=== PATIENT | male | born 1945 | race American Indian/Alaskan Native ===

== ENCOUNTER 2016-07-15 05:14 | Inpatient (IN) | payer MEDICARE ==
[2016-07-15 06:51] LABS: Basophils % (Auto) 0.5 % (0.0-1.8); Eosinophils % (Auto) 2.5 % (0.0-4.3); Hemoglobin 10.1 gm/dl (11.8-15.2); Mean Corpuscular HGB Conc 33 % (32-34); Mean Corpuscular Volume 77 fl (84-94); Platelet Count 553 K/mm3 (140-440); Red Blood Count 4.02 M/mm3 (3.65-5.03); Red Cell Distribution Width 19.8 % (13.2-15.2); White Blood Count 10.9 K/mm3 (4.5-11.0)
[2016-07-15 06:53] LABS: Albumin 3.3 g/dL (3.9-5); Albumin/Globulin Ratio 0.6 %; Alkaline Phosphatase 75 units/L (35-129); Anion Gap 22 mmol/L; BUN/Creatinine Ratio 28.33; Bilirubin,Total 0.4 mg/dL (0.1-1.2); Blood Urea Nitrogen 17 mg/dL (9-20); Calcium 9.5 mg/dL (8.4-10.2); Carbon Dioxide 22 mmol/L (22-30); Chloride 99.8 mmol/L (98-107); Glucose 100 mg/dL (75-100); Magnesium 2.2 mg/dL (1.7-2.3); Potassium 4.3 mmol/L (3.6-5.0); Sodium 139 mmol/L (137-145); Total Protein 9.2 g/dL (6.3-8.2)
[2016-07-15 06:54] LABS: Alanine Aminotransferase < 5 units/L (7-56)
[2016-07-15 06:55] LABS: Mean Corpuscular Hemoglobin 25 pg (28-32)
--- NOTE | 2016-07-15 07:12 | Emergency Department Report ---
ED Male HPI - General Chief complaint: Urogenital-Male Stated complaint: UNABLE TO URINATE Time Seen by Provider: 07/15/16 06:45 Source: patient, EMS Mode of arrival: Stretcher Limitations: Physical Limitation - History of Present Illness Initial comments: 70-year-old male presents to the emergency department via EMS from a local shelter for evaluation of inability to urinate and reported altered mental status. Per report, the patient has been unable to urinate for the past 8 hours or to arrival. Patient has a history of encephalopathy and is currently denying complaints. -: Gradual, During the night Consistency: constant Improves with: none Worsens with: none denies other symptoms - Related Data Allergies Allergy/AdvReac Type Severity Reaction Status Date / Time No Known Allergies Allergy Unverified 07/15/16 05:46 ED Review of Systems ROS: Stated complaint: UNABLE TO URINATE Other details as noted in HPI Comment: All other systems reviewed and negative Genitourinary: as per HPI (urinary retention) ED Past Medical Hx - Past Medical History Previous Medical History?: Yes Additional medical history: UTI, hyperlipidemia, and encephalopathy, pressure Ulcers - Surgical History Past Surgical History?: No - Family History Family history: no significant - Social History Smoking Status: Unknown if ever smoked ED Physical Exam - General Limitations: Physical Limitation General appearance: alert, in no apparent distress - Head Head exam: Present: atraumatic, normocephalic - Eye Eye exam: Present: normal appearance, PERRL, EOMI - ENT ENT exam: Present: normal exam, normal orophraynx, mucous membranes moist - Neck Neck exam: Present: normal inspection, full ROM. Absent: tenderness - Respiratory Respiratory exam: Present: normal lung sounds bilaterally. Absent: respiratory distress - Cardiovascular Cardiovascular Exam: Present: normal rhythm, tachycardia, normal heart sounds - GI/Abdominal GI/Abdominal exam: Present: soft, normal bowel sounds. Absent: distended, tenderness - exam: Present: normal inspection External exam: Present: normal external exam - Extremities Exam Extremities exam: Present: normal inspection, full ROM. Absent: tenderness - Back Exam Back exam: Present: normal inspection, full ROM. Absent: tenderness - Neurological Exam Neurological exam: Present: alert. Absent: oriented X3 (oriented to person and place only) - Skin Skin exam: Present: warm, dry, intact ED Course Vital Signs 07/15/16 07/15/1607/15/17 05:25 05:30 05:33 Temperature 97.9 F Pulse Rate 121 H 120 H 117 H Respiratory 12 22 20 Rate Blood Pressure 102/63 102/63 Blood Pressure [Left] O2 Sat by Pulse 99 Oximetry 07/15/16 07/15/16 07/15/16 06:00 06:27 08:26 Temperature 97.9 F 98.8 F Pulse Rate 123 H 110 H Respiratory 21 20 16 Rate Blood Pressure 115/77 Blood Pressure 110/85 [Left] O2 Sat by Pulse 100 100 96 Oximetry ED Medical Decision Making - Lab Data Result diagrams: 07/15/16 05:58 07/15/16 05:58 - EKG Data -: EKG Interpreted by Me EKG shows normal: sinus rhythm, axis, intervals, QRS complexes, ST-T waves Rate: tachycardia - EKG Data When compared to previous EKG there are: previous EKG unavailable Interpretation: other (sinus tachycardia with frequent premature atrial complexes) - Medical Decision Making Lab results reviewed and discussed with the patient and family. Patient remained somewhat tachycardic. Giving IV fluids. Also giving IV Rocephin. Urine culture has been ordered. Monteiro catheter was previously placed by nursing after arrival emergency department. Patient will be admitted by the hospitalist. - Differential Diagnosis urinary retention, UTI, encephalopathy Critical care attestation.: If time is entered above; I have spent that time in minutes in the direct care of this critically ill patient, excluding procedure time. ED Disposition Clinical Impression: UTI (urinary tract infection) Qualifiers: Urinary tract infection type: acute cystitis Hematuria presence: without hematuria Qualified Code(s): N30.00 - Acute cystitis without hematuria Altered mental status Qualifiers: Altered mental status type: unspecified Qualified Code(s): R41.82 - Altered mental status, unspecified Disposition: OP ADMITTED IP TO THIS HOSP Is pt being admited?: Yes Condition: Stable Time of Disposition: 08:37
[2016-07-15 07:24] LABS: Urine Drugs of Abuse Note Disclamer
[2016-07-15 07:33] LABS: Bacteria,Urine 3+ /HPF (Negative); Bilirubin,Urine NEG (Negative); Blood,Urine MOD (Negative); Ketones,Urine NEG (Negative); Leukocyte Esterase,Urine LG (Negative); Mucus,Urine FEW /HPF; Nitrite,Urine NEG (Negative); Urobilinogen,Urine < 2.0 mg/dL (<2.0)
[2016-07-15 07:34] LABS: WBC,Urine > 182.0 /HPF (0.0-6.0)
[2016-07-15] MEDS ORDERED: NACL 0.9% 1000 ML 1,000 ML IV ONE (08:35)
[2016-07-15] MEDS ORDERED: ROCEPHIN/NS 1 GM/50 ML 1 GM/50 ML BAG IV ONE (08:36)
--- NOTE | 2016-07-15 09:05 | Admit Criteria Form ---
Admission Criteria Documentation: URINARY COMPLICATIONS Clinical Indications for Inpatient Care (Place 'X' for any and all applicable criteria): Ongoing inpatient care may be indicated for urinary complications with ANY ONE of the following: [x ]I. Urinary tract infection requiring inpatient care as indicated by ANY ONE of the following(8)(19)(20): [ ]a) Severe symptoms (eg, high fever, severe pain) [ ]b) Vomiting or dehydration requiring ongoing inpatient care [x ]c) IV antibiotic needs that cannot be managed at lower level of care [ ]d) Hemodynamic instability [ ]e) Obstruction of collecting system by stone or tumor [ ]II. Urinary retention requiring drainage or surgery (3)(4)(5)(17)(18) [ ]III. Renal failure (Use Renal Failure Criteria for further information.) [ ]IV. Oliguria(30) [ ]V. Post obstructive diuresis requiring close monitoring of urine output and intravenous compensation for excessive fluid losses(33) Extended stay beyond goal length of stay for primary condition may be needed until ALL of the following are present(3)(4)(5)(8): [ ]a) Renal function (creatinine) at baseline, or daily decreases in creatinine consistent with renal function return [ ]b) Voiding adequately or with urinary catheter or percutaneous suprapubic tube and management regimen in place that is performable at lower level of care. [ ]c) Urine output adequate [ ]d) Fever absent or resolving [ ]e) Infection absent or treatable at next level of care The original [employer] content created by [employer] has been revised. The portions of the content which have been revised are identified through the use of italic text or in bold, and [facility] has neither reviewed nor approved the modified material. All other unmodified content is copyright [employer] Please see references footnoted in the original [employer] edition 2016 Admission Criteria Met: Yes
[2016-07-15] MEDS ORDERED: ZOFRAN IV PRN (09:30)
[2016-07-15] MEDS ORDERED: MILK OF MAGNESIA PO PRN (09:30)
[2016-07-15] MEDS ORDERED: TYLENOL PO PRN (09:30)
[2016-07-15] MEDS ORDERED: DULCOLAX PR PRN (10:00)
[2016-07-15] MEDS ORDERED: PROVENTIL IH PRN (11:00)
[2016-07-15] MEDS: HEPARIN SUB-Q SCH ×2 (11:11→22:34)
[2016-07-15] MEDS: ROCEPHIN/NS 1 GM/50 ML 1 GM/50 ML BAG IV SCH (11:11)
[2016-07-15] MEDS ORDERED: TYLENOL PR ONE (13:37)
[2016-07-15] MEDS ORDERED: TYLENOL PR PRN (13:44)
--- NOTE | 2016-07-15 14:45 | History and Physical Report ---
History of Present Illness Date of examination: 07/15/16 Date of admission: 07/15/16 08:46 Chief complaint: Inability to urinate, dysphagia, failure to thrive History of present illness: Patient is 70 [facility] with history of hypertension, diabetes mellitus, dementia and bedbound. We'll presents to the ER with report of inability to urinate and altered mental status. Less than staff reports the patient has not urinated in the past 8 hours. Appears to be a baseline mentation otherwise. On arrival to the hospital a Monteiro Was inserted with thick urine out both with multiple sentiments of about 600 mL noted. The patient is unable to give any information. The white count was noted by urinalysis was indicative of urinary tract infection. Patient was started on empiric antibiotics are recommended for admission. detention facility also reports the patient has not been tolerating by mouth intake. This could have led to her dehydration but is being noted. Past History Past Medical History: diabetes, hypertension, hyperlipidemia Past Surgical History: Other (unable to obtain information) Social history: full code Family history: other (unable to obtain information) Medications and Allergies Allergies Allergy/AdvReac Type Severity Reaction Status Date / Time No Known Allergies Allergy Verified 07/15/16 09:14 Home Medications Medication Instructions Recorded Confirmed Last Taken Type AtorvaSTATin [Lipitor] 40 mg PO QHS 07/15/16 07/15/16 Unknown History Bisacodyl [Dulcolax suppos] 10 mg MN QDAY PRN 07/15/16 07/15/16 Unknown History Docusate Sodium [Colace] 100 mg PO BID PRN 07/15/16 07/15/16 Unknown History Insulin Aspart [NovoLOG Flexpen] 0 units SQ ACHS 07/15/16 07/15/16 Unknown History Lisinopril [Zestril TAB] 10 mg PO QDAY 07/15/16 07/15/16 Unknown History Magnesium 400 mg PO BID 07/15/16 07/15/16 Unknown History Pentoxifylline [TRENtal] 400 mg PO TID 07/15/16 07/15/16 Unknown History Thiamine [Vitamin B-1] 100 mg PO QDAY 07/15/16 07/15/16 Unknown History amLODIPine [Norvasc] 10 mg PO DAILY 07/15/16 07/15/16 Unknown History Active Meds: Active Medications Acetaminophen (Tylenol) 650 mg PO Q4H PRN PRN Reason: Pain MILD(1-3)/Fever >100.5/VALDEZ Acetaminophen (Tylenol) 650 mg MN Q6H PRN PRN Reason: Pain, Mild (1-3) Last Admin: 07/15/16 13:45 Dose: 650 mg Albuterol (Proventil) 2.5 mg IH Q3HRT PRN PRN Reason: Shortness Of Breath Bisacodyl (Dulcolax) 10 mg MN QDAY PRN PRN Reason: Constipation unrelieved by MOM Heparin Sodium (Porcine) (Heparin) 5,000 unit SUB-Q Q12HR GAUDENCIO Last Admin: 07/15/16 11:11 Dose: Not Given Ceftriaxone Sodium (Rocephin/Ns 1 Gm/50 Ml) 1 gm in 50 mls @ 100 mls/hr IV Q24HR GAUDENCIO PRN Reason: Protocol Last Admin: 07/15/16 11:11 Dose: 100 mls/hr Potassium Chloride/Dextrose/Sod Cl (D5w/0.45% Nacl/Kcl 20 Meq) 20 meq in 1,000 mls @ 125 mls/hr IV DIRECT GAUDENCIO Magnesium Hydroxide (Milk Of Magnesia) 30 ml PO Q4H PRN PRN Reason: Constipation Ondansetron HCl (Zofran) 4 mg IV Q8H PRN PRN Reason: Nausea And Vomiting Review of Systems ROS unobtainable: due to mental status (altered mental status) Exam - Physical Exam Narrative exam: VITAL SIGNS: Reviewed. GENERAL: The patient appeared thin, disheveled. Vital signs as documented. HEAD: No signs of head trauma. EYES: Pupils are equal. Extraocular motions intact. EARS: Hearing grossly intact. MOUTH: Oropharynx is normal. NECK: No adenopathy, no JVD. CHEST: Chest with clear breath sounds bilaterally. No wheezes, rales, or rhonchi. CARDIAC: Regular rate and rhythm. S1 and S2, without murmurs, gallops, or rubs. VASCULAR: No Edema. Peripheral pulses normal and equal in all extremities. ABDOMEN: Soft, without detectable tenderness. No sign of distention. No rebound or guarding, and no masses palpated. Bowel Sounds normal. MUSCULOSKELETAL: Good range of motion of all major joints. Extremities without clubbing, cyanosis or edema. NEUROLOGIC EXAM: Awake, determine orientation due to dementia. No focal sensory or strength deficits. Speech comprehensible at times. Follows commands. PSYCHIATRIC: Mood normal. SKIN: Multiple sacral and pressure ulcers unstageable at the sacral area also on the heels. - Constitutional Vitals: Temp Pulse Resp BP Pulse Ox 100.0 F H 119 H 16 126/74 99 07/15/16 13:30 07/15/16 13:30 07/15/16 13:30 07/15/16 13:30 07/15/16 13:30 Results - Labs CBC & Chem 7: 07/15/16 05:58 07/15/16 05:58 Labs: Laboratory Last Values WBC 10.9 K/mm3 (4.5-11.0) 07/15/16 05:58 RBC 4.02 M/mm3 (3.65-5.03) 07/15/16 05:58 Hgb 10.1 gm/dl (11.8-15.2) L 07/15/16 05:58 Hct 31.0 % (35.5-45.6) L 07/15/16 05:58 MCV 77 fl (84-94) L 07/15/16 05:58 MCH 25 pg (28-32) L 07/15/16 05:58 MCHC 33 % (32-34) 07/15/16 05:58 RDW 19.8 % (13.2-15.2) H 07/15/16 05:58 Plt Count 553 K/mm3 (140-440) H 07/15/16 05:58 Lymph % (Auto) 26.5 % (13.4-35.0) 07/15/16 05:58 [place] % (Auto) 4.8 % (0.0-7.3) 07/15/16 05:58 Eos % (Auto) 2.5 % (0.0-4.3) 07/15/16 05:58 Baso % (Auto) 0.5 % (0.0-1.8) 07/15/16 05:58 Lymph # 2.9 K/mm3 (1.2-5.4) 07/15/16 05:58 [place] # 0.5 K/mm3 (0.0-0.8) 07/15/16 05:58 Eos # 0.3 K/mm3 (0.0-0.4) 07/15/16 05:58 Baso # 0.1 K/mm3 (0.0-0.1) 07/15/16 05:58 Seg Neutrophils % 65.7 % (40.0-70.0) 07/15/16 05:58 Seg Neutrophils # 7.2 K/mm3 (1.8-7.7) 07/15/16 05:58 Sodium 139 mmol/L (137-145) 07/15/16 05:58 Potassium 4.3 mmol/L (3.6-5.0) 07/15/16 05:58 Chloride 99.8 mmol/L (98-107) 07/15/16 05:58 Carbon Dioxide 22 mmol/L (22-30) 07/15/16 05:58 Anion Gap 22 mmol/L 07/15/16 05:58 BUN 17 mg/dL (9-20) 07/15/16 05:58 Creatinine 0.6 mg/dL (0.8-1.5) L 07/15/16 05:58 Estimated GFR > 60 ml/min 07/15/16 05:58 BUN/Creatinine Ratio 28.33 % 07/15/16 05:58 Glucose 100 mg/dL (75-100) 07/15/16 05:58 Lactic Acid 1.9 mmol/L (0.7-2.0) 07/15/16 08:39 Calcium 9.5 mg/dL (8.4-10.2) 07/15/16 05:58 Magnesium 2.2 mg/dL (1.7-2.3) 07/15/16 05:58 Total Bilirubin 0.4 mg/dL (0.1-1.2) 07/15/16 05:58 AST 21 units/L (5-40) 07/15/16 05:58 ALT < 5 units/L (7-56) L 07/15/16 05:58 Alkaline Phosphatase 75 units/L (35-129) 07/15/16 05:58 Total Protein 9.2 g/dL (6.3-8.2) H 07/15/16 05:58 Albumin 3.3 g/dL (3.9-5) L 07/15/16 05:58 Albumin/Globulin Ratio 0.6 % 07/15/16 05:58 TSH 1.870 mlU/mL (0.270-4.200) 07/15/16 05:58 Urine Color Erin (Yellow) 07/15/16 07:11 Urine Turbidity Turbid (Clear) 07/15/16 07:11 Urine pH 5.0 (5.0-7.0) 07/15/16 07:11 Ur Specific [place] 1.013 (1.003-1.030) 07/15/16 07:11 Urine Protein 30 mg/dl mg/dL (Negative) 07/15/16 07:11 Urine Glucose (UA) Neg mg/dL (Negative) 07/15/16 07:11 Urine Ketones Neg mg/dL (Negative) 07/15/16 07:11 Urine Blood Mod (Negative) 07/15/16 07:11 Urine Nitrite Neg (Negative) 07/15/16 07:11 Urine Bilirubin Neg (Negative) 07/15/16 07:11 Urine Urobilinogen < 2.0 mg/dL (<2.0) 07/15/16 07:11 Ur Leukocyte Esterase Lg (Negative) 07/15/16 07:11 Urine WBC (Auto) > 182.0 /HPF (0.0-6.0) H 07/15/16 07:11 Urine RBC (Auto) 44.0 /HPF (0.0-6.0) 07/15/16 07:11 Urine Bacteria (Auto) 3+ /HPF (Negative) 07/15/16 07:11 Urine WBC Clumps 1+ /HPF 07/15/16 07:11 Hyaline Casts 13 /LPF 07/15/16 07:11 Urine Mucus Few /HPF 07/15/16 07:11 Salicylates < 0.3 mg/dL (2.8-20.0) L 07/15/16 05:58 Urine Opiates Screen Presumptive negative 07/15/16 07:11 Urine Methadone Screen Presumptive negative 07/15/16 07:11 Acetaminophen < 15.0 ug/mL (10.0-30.0) 07/15/16 05:58 Ur Barbiturates Screen Presumptive negative 07/15/16 07:11 Ur Phencyclidine Scrn Presumptive negative 07/15/16 07:11 Ur Amphetamines Screen Presumptive negative 07/15/16 07:11 U Benzodiazepines Scrn Presumptive negative 07/15/16 07:11 Urine Cocaine Screen Presumptive negative 07/15/16 07:11 U Marijuana (THC) Screen Presumptive negative 07/15/16 07:11 Drugs of Abuse Note Disclamer 07/15/16 07:11 Plasma/Serum Alcohol < 0.01 gm% (0-0.07) 07/15/16 05:58 Assessment and Plan Assessment and plan: Patient is 70 [facility] with history of hypertension, diabetes mellitus, dementia and bedbound. We'll presents to the ER with report of inability to urinate and altered mental status. Less than staff reports the patient has not urinated in the past 8 hours. Appears to be a baseline mentation otherwise. On arrival to the hospital a Monteiro Was inserted with thick urine out both with multiple sentiments of about 600 mL noted. The patient is unable to give any information. The white count was noted by urinalysis was indicative of urinary tract infection. Patient was started on empiric antibiotics are recommended for admission. detention facility also reports the patient has not been tolerating by mouth intake. This could have led to her dehydration but is being noted. * Acute cystitis * Urinary retention likely secondary to above * Dementia * Toxic metabolic encephalopathy could be secondary to the cystitis although close to baseline * Ambulatory/bedbound * Hypertension * Hyperlipidemia * Pressure ulcers unstageable Plan * supportive care, fall precautions, * Blood cultures, lactate * start on Emperic antibiotics * resume home medication * Fluid resusication * Will trial removal of Monteiro prior to discharge * wound care consult * dvt/gi prophylaxis * call placed to family Advance Directives: Yes Plan of care discussed with patient/family: Yes
[2016-07-15] MEDS ORDERED: COLACE PO PRN (15:03)
[2016-07-15] MEDS: TRENTAL PO SCH (22:33)
[2016-07-16] MEDS: D5W/0.45% NACL/KCL 20 MEQ 20 MEQ/1,000 ML BAG IV SCH (07:43)
[2016-07-16 08:01] LABS: Anion Gap 19 mmol/L; Blood Urea Nitrogen 12 mg/dL (9-20); Calcium 8.9 mg/dL (8.4-10.2); Carbon Dioxide 20 mmol/L (22-30); Chloride 102.5 mmol/L (98-107); Glucose 68 mg/dL (75-100); Potassium 4.3 mmol/L (3.6-5.0); Sodium 137 mmol/L (137-145)
[2016-07-16 08:09] LABS: Basophils % (Auto) 0.7 % (0.0-1.8); Eosinophils % (Auto) 0.6 % (0.0-4.3); Hematocrit 26.8 % (35.5-45.6); Hemoglobin 8.7 gm/dl (11.8-15.2); Mean Corpuscular HGB Conc 33 % (32-34); Mean Corpuscular Volume 77 fl (84-94); Platelet Count 414 K/mm3 (140-440); Red Blood Count 3.46 M/mm3 (3.65-5.03); Red Cell Distribution Width 19.8 % (13.2-15.2)
[2016-07-16 08:15] LABS: Mean Corpuscular Hemoglobin 25 pg (28-32)
[2016-07-16] MEDS: ROCEPHIN/NS 1 GM/50 ML 1 GM/50 ML BAG IV SCH (11:02)
[2016-07-16] MEDS: ZESTRIL PO SCH (11:03)
[2016-07-16] MEDS: VITAMIN B-1 PO SCH (11:03)
[2016-07-16] MEDS: TRENTAL PO SCH ×3 (11:08→21:00)
[2016-07-16] MEDS: HEPARIN SUB-Q SCH ×2 (11:14→22:11)
--- NOTE | 2016-07-16 16:09 | Progress Note ---
Assessment and Plan Assessment and plan: Patient is 70 year old male from [facility] with history of hypertension, diabetes mellitus, dementia and bedbound. We'll presents to the ER with report of inability to urinate and altered mental status. Less than staff reports the patient has not urinated in the past 8 hours. Appears to be a baseline mentation otherwise. On arrival to the hospital a Monteiro Was inserted with thick urine out both with multiple sentiments of about 600 mL noted. The patient is unable to give any information. The white count was noted by urinalysis was indicative of urinary tract infection. Patient was started on empiric antibiotics are recommended for admission. [facility] facility also reports the patient has not been tolerating by mouth intake. This could have led to her dehydration but is being noted. * Acute cystitis * Urinary retention likely secondary to above * Dementia * Toxic metabolic encephalopathy could be secondary to the cystitis although close to baseline * Ambulatory/bedbound * Hypertension * Hypoglycemia * Anemia of chronic disease * Hyperlipidemia * Pressure ulcers unstageable Plan * continue supportive care, fall precautions, * Blood cultures no growth, awaiting urine culture * continue Emperic antibiotics * resume home medication * We'll check iron levels. No evidence of GI bleed at this time. * Change fluids to D5W * Fluid resusication * Will trial removal of Monteiro prior to discharge * wound care consult * dvt/gi prophylaxis * Anticipate discharge in a.m. * call placed to family History Interval history: Patient seen and examined this morning states that he is improving. Denies any pain. Although still intermittently confused, NO other adverse event reported by nursing staff. Hospitalist Physical - Physical exam Narrative exam: VITAL SIGNS: Reviewed. GENERAL: The patient appeared thin, in no acute distress. Vital signs as documented. HEAD: No signs of head trauma. EYES: Pupils are equal. Extraocular motions intact. EARS: Hearing grossly intact. MOUTH: Oropharynx is normal. NECK: No adenopathy, no JVD. CHEST: Chest with clear breath sounds bilaterally. No wheezes, rales, or rhonchi. CARDIAC: Regular rate and rhythm. S1 and S2, without murmurs, gallops, or rubs. VASCULAR: No Edema. Peripheral pulses normal and equal in all extremities. ABDOMEN: Soft, without detectable tenderness. No sign of distention. No rebound or guarding, and no masses palpated. Bowel Sounds normal. MUSCULOSKELETAL: Good range of motion of all major joints. Extremities without clubbing, cyanosis or edema. NEUROLOGIC EXAM: Awake, determine orientation due to dementia. No focal sensory or strength deficits. Speech comprehensible at times. Follows commands. PSYCHIATRIC: Mood normal. SKIN: Multiple sacral and pressure ulcers unstageable at the sacral area also on the heels. - Constitutional Vitals: Temp Pulse Resp BP Pulse Ox 98.2 F 104 H 20 130/74 99 07/16/16 08:00 07/16/16 08:00 07/16/16 08:00 07/16/16 11:03 07/16/16 08:00 Results - Labs CBC & Chem 7: 07/16/16 06:45 07/16/16 06:45 Labs: Laboratory Last Values WBC 9.0 K/mm3 (4.5-11.0) 07/16/16 06:45 RBC 3.46 M/mm3 (3.65-5.03) L 07/16/16 06:45 Hgb 8.7 gm/dl (11.8-15.2) L 07/16/16 06:45 Hct 26.8 % (35.5-45.6) L 07/16/16 06:45 MCV 77 fl (84-94) L 07/16/16 06:45 MCH 25 pg (28-32) L 07/16/16 06:45 MCHC 33 % (32-34) 07/16/16 06:45 RDW 19.8 % (13.2-15.2) H 07/16/16 06:45 Plt Count 414 K/mm3 (140-440) 07/16/16 06:45 Lymph % (Auto) 26.7 % (13.4-35.0) 07/16/16 06:45 [place] % (Auto) 5.6 % (0.0-7.3) 07/16/16 06:45 Eos % (Auto) 0.6 % (0.0-4.3) 07/16/16 06:45 Baso % (Auto) 0.7 % (0.0-1.8) 07/16/16 06:45 Lymph # 2.4 K/mm3 (1.2-5.4) 07/16/16 06:45 [place] # 0.5 K/mm3 (0.0-0.8) 07/16/16 06:45 Eos # 0.1 K/mm3 (0.0-0.4) 07/16/16 06:45 Baso # 0.1 K/mm3 (0.0-0.1) 07/16/16 06:45 Seg Neutrophils % 66.4 % (40.0-70.0) 07/16/16 06:45 Seg Neutrophils # 6.0 K/mm3 (1.8-7.7) 07/16/16 06:45 Sodium 137 mmol/L (137-145) 07/16/16 06:45 Potassium 4.3 mmol/L (3.6-5.0) 07/16/16 06:45 Chloride 102.5 mmol/L (98-107) 07/16/16 06:45 Carbon Dioxide 20 mmol/L (22-30) L 07/16/16 06:45 Anion Gap 19 mmol/L 07/16/16 06:45 BUN 12 mg/dL (9-20) 07/16/16 06:45 Creatinine 0.4 mg/dL (0.8-1.5) L 07/16/16 06:45 Estimated GFR > 60 ml/min 07/16/16 06:45 BUN/Creatinine Ratio 30.00 % 07/16/16 06:45 Glucose 68 mg/dL (75-100) L 07/16/16 06:45 POC Glucose 99 (70-105) 07/16/16 11:55 Lactic Acid 1.7 mmol/L (0.7-2.0) 07/15/16 19:46 Calcium 8.9 mg/dL (8.4-10.2) 07/16/16 06:45 Magnesium 2.2 mg/dL (1.7-2.3) 07/15/16 05:58 Total Bilirubin 0.4 mg/dL (0.1-1.2) 07/15/16 05:58 AST 21 units/L (5-40) 07/15/16 05:58 ALT < 5 units/L (7-56) L 07/15/16 05:58 Alkaline Phosphatase 75 units/L (35-129) 07/15/16 05:58 Total Protein 9.2 g/dL (6.3-8.2) H 07/15/16 05:58 Albumin 3.3 g/dL (3.9-5) L 07/15/16 05:58 Albumin/Globulin Ratio 0.6 % 07/15/16 05:58 TSH 1.870 mlU/mL (0.270-4.200) 07/15/16 05:58 Urine Color [place] (Yellow) 07/15/16 07:11 Urine Turbidity Turbid (Clear) 07/15/16 07:11 Urine pH 5.0 (5.0-7.0) 07/15/16 07:11 Ur Specific [place] 1.013 (1.003-1.030) 07/15/16 07:11 Urine Protein 30 mg/dl mg/dL (Negative) 07/15/16 07:11 Urine Glucose (UA) Neg mg/dL (Negative) 07/15/16 07:11 Urine Ketones Neg mg/dL (Negative) 07/15/16 07:11 Urine Blood Mod (Negative) 07/15/16 07:11 Urine Nitrite Neg (Negative) 07/15/16 07:11 Urine Bilirubin Neg (Negative) 07/15/16 07:11 Urine Urobilinogen < 2.0 mg/dL (<2.0) 07/15/16 07:11 Ur Leukocyte Esterase Lg (Negative) 07/15/16 07:11 Urine WBC (Auto) > 182.0 /HPF (0.0-6.0) H 07/15/16 07:11 Urine RBC (Auto) 44.0 /HPF (0.0-6.0) 07/15/16 07:11 Urine Bacteria (Auto) 3+ /HPF (Negative) 07/15/16 07:11 Urine WBC Clumps 1+ /HPF 07/15/16 07:11 Hyaline Casts 13 /LPF 07/15/16 07:11 Urine Mucus Few /HPF 07/15/16 07:11 Salicylates < 0.3 mg/dL (2.8-20.0) L 07/15/16 05:58 Urine Opiates Screen Presumptive negative 07/15/16 07:11 Urine Methadone Screen Presumptive negative 07/15/16 07:11 Acetaminophen < 15.0 ug/mL (10.0-30.0) 07/15/16 05:58 Ur Barbiturates Screen Presumptive negative 07/15/16 07:11 Ur Phencyclidine Scrn Presumptive negative 07/15/16 07:11 Ur Amphetamines Screen Presumptive negative 07/15/16 07:11 U Benzodiazepines Scrn Presumptive negative 07/15/16 07:11 Urine Cocaine Screen Presumptive negative 07/15/16 07:11 U Marijuana (THC) Screen Presumptive negative 07/15/16 07:11 Drugs of Abuse Note Disclamer 07/15/16 07:11 Plasma/Serum Alcohol < 0.01 gm% (0-0.07) 07/15/16 05:58
[2016-07-17] MEDS: D5W/0.45% NACL/KCL 20 MEQ 20 MEQ/1,000 ML BAG IV SCH (06:00)
--- NOTE | 2016-07-17 07:30 | Discharge Summary ---
Providers - Providers Date of Admission: 07/15/16 08:46 Date of discharge: 07/17/16 Attending physician: CARLO CUBA MD 07/15/16 08:48 Speech Therapy Evaluation and Treat [CONS] Routine Reason For Exam: eval for aspiration/ dysphagia 07/15/16 08:49 Consult to Wound/ET Nurse [CONS] Routine Reason For Exam: wound eval Primary care physician: MARK[facility]STER Hospitalization Reason for admission: AMS Condition: Stable Hospital course: Patient is 70 year old male from [facility] with history of hypertension, diabetes mellitus, dementia and bedbound. We'll presents to the ER with report of inability to urinate and altered mental status. Less than staff reports the patient has not urinated in the past 8 hours. Appears to be a baseline mentation otherwise. On arrival to the hospital a Monteiro Was inserted with thick urine out both with multiple sentiments of about 600 mL noted. The patient is unable to give any information. The white count was noted by urinalysis was indicative of urinary tract infection. Patient was started on empiric antibiotics are recommended for admission. senior care facility also reports the patient has not been tolerating by mouth intake. This could have led to her dehydration but is being noted. Patient on admission was started on IV antibiotics. Cultures were sent out with no growth at this time. Unfortunately urine culture was not sent despite multiple discussions with staff to have this sent off. Patient did not have any fever his mentation did improve back to his baseline. He is nonambulatory. Monteiro catheter was discontinued with good improvement. His pressure also has both of the heel and the sacral area unstageable but continuous care was provided to it. With every 2 hours turns. He is clinically stable at this point for discharge Discharge diagnosis * Acute cystitis * Urinary retention likely secondary to above * Dementia * Toxic metabolic encephalopathy could be secondary to the cystitis although close to baseline * Ambulatory/bedbound * Hypertension * Hypoglycemia * Anemia of chronic disease * Hyperlipidemia * Pressure ulcers unstageable Disposition: DC/TX SNF [facility] CERT Time spent for discharge: 35 Core Measure Documentation - Palliative Care Palliative Care/ Comfort Measures: Not Applicable - Core Measures Any of the following diagnoses?: none - VTE Discharge Requirements Deep Vein Thrombosis/Pulmonary Embolism Present on Admission: No Exam - Physical Exam Narrative exam: VITAL SIGNS: Reviewed. GENERAL: The patient appeared thin, in no acute distress. Vital signs as documented. HEAD: No signs of head trauma. EYES: Pupils are equal. Extraocular motions intact. EARS: Hearing grossly intact. MOUTH: Oropharynx is normal. NECK: No adenopathy, no JVD. CHEST: Chest with clear breath sounds bilaterally. No wheezes, rales, or rhonchi. CARDIAC: Regular rate and rhythm. S1 and S2, without murmurs, gallops, or rubs. VASCULAR: No Edema. Peripheral pulses normal and equal in all extremities. ABDOMEN: Soft, without detectable tenderness. No sign of distention. No rebound or guarding, and no masses palpated. Bowel Sounds normal. MUSCULOSKELETAL: Good range of motion of all major joints. Extremities without clubbing, cyanosis or edema. NEUROLOGIC EXAM: Awake, determine orientation due to dementia. No focal sensory or strength deficits. Speech comprehensible at times. Follows commands. PSYCHIATRIC: Mood normal. SKIN: Multiple sacral and pressure ulcers unstageable at the sacral area also on the heels. - Constitutional Vitals: Temp Pulse Resp BP Pulse Ox 98.4 F 122 H 22 132/76 95 07/17/16 00:00 07/17/16 00:00 07/17/16 00:00 07/17/16 00:00 07/17/16 00:00 Plan Activity: advance as tolerated, fall precautions Diet: low fat Special Instructions: record daily BP diary Follow up with: PRIMARY CAREMD [Primary Care Provider] - 3-5 Days Prescriptions: Ciprofloxacin HCl [Ciprofloxacin TAB] 500 mg PO Q12H #7 tab
[2016-07-17] MEDS: TRENTAL PO SCH ×2 (08:57→18:51)
[2016-07-17] MEDS: ZESTRIL PO SCH (09:03)
[2016-07-17] MEDS: VITAMIN B-1 PO SCH (09:03)
[2016-07-17] MEDS: ROCEPHIN/NS 1 GM/50 ML 1 GM/50 ML BAG IV SCH (09:03)
[2016-07-17] MEDS: HEPARIN SUB-Q SCH (09:30)
[2016-07-17 09:35] VITALS: BP 133/66
--- NOTE | 2016-07-17 14:25 | Progress Note ---
Assessment and Plan Assessment and plan: Patient is 70 year old male from assisted with history of hypertension, diabetes mellitus, dementia and bedbound. We'll presents to the ER with report of inability to urinate and altered mental status. Less than staff reports the patient has not urinated in the past 8 hours. Appears to be a baseline mentation otherwise. On arrival to the hospital a Monteiro Was inserted with thick urine out both with multiple sentiments of about 600 mL noted. The patient is unable to give any information. The white count was noted by urinalysis was indicative of urinary tract infection. Patient was started on empiric antibiotics are recommended for admission. group home facility also reports the patient has not been tolerating by mouth intake. This could have led to her dehydration but is being noted. * Acute cystitis * Urinary retention likely secondary to above * Dementia * Toxic metabolic encephalopathy could be secondary to the cystitis although close to baseline * Ambulatory/bedbound * Hypertension * Hypoglycemia * Anemia of chronic disease * Hyperlipidemia * Pressure ulcers unstageable Plan * continue supportive care, fall precautions, * Blood cultures no growth, awaiting urine culture * Monteiro Was discontinued and patient able to urinate. * Able for discharge today. * A complete oral antibiotics * Plan discussed with nursing staff as no family is available at this time. History Interval history: Patient seen and examined this morning states that he is improving. Denies any pain. confused, NO other adverse event reported by nursing staff. Hospitalist Physical - Physical exam Narrative exam: VITAL SIGNS: Reviewed. GENERAL: The patient appeared thin, in no acute distress. Vital signs as documented. HEAD: No signs of head trauma. EYES: Pupils are equal. Extraocular motions intact. EARS: Hearing grossly intact. MOUTH: Oropharynx is normal. NECK: No adenopathy, no JVD. CHEST: Chest with clear breath sounds bilaterally. No wheezes, rales, or rhonchi. CARDIAC: Regular rate and rhythm. S1 and S2, without murmurs, gallops, or rubs. VASCULAR: No Edema. Peripheral pulses normal and equal in all extremities. ABDOMEN: Soft, without detectable tenderness. No sign of distention. No rebound or guarding, and no masses palpated. Bowel Sounds normal. MUSCULOSKELETAL: Good range of motion of all major joints. Extremities without clubbing, cyanosis or edema. NEUROLOGIC EXAM: Awake, determine orientation due to dementia. No focal sensory or strength deficits. Speech comprehensible at times. Follows commands. PSYCHIATRIC: Mood normal. SKIN: Multiple sacral and pressure ulcers unstageable at the sacral area also on the heels. - Constitutional Vitals: Temp Pulse Resp BP Pulse Ox 97.7 F 124 H 24 132/76 98 07/17/16 08:29 07/17/16 08:29 07/17/16 08:29 07/17/16 09:03 07/17/16 08:29 Results - Labs CBC & Chem 7: 07/16/16 06:45 07/16/16 06:45 Labs: Laboratory Last Values WBC 9.0 K/mm3 (4.5-11.0) 07/16/16 06:45 RBC 3.46 M/mm3 (3.65-5.03) L 07/16/16 06:45 Hgb 8.7 gm/dl (11.8-15.2) L 07/16/16 06:45 Hct 26.8 % (35.5-45.6) L 07/16/16 06:45 MCV 77 fl (84-94) L 07/16/16 06:45 MCH 25 pg (28-32) L 07/16/16 06:45 MCHC 33 % (32-34) 07/16/16 06:45 RDW 19.8 % (13.2-15.2) H 07/16/16 06:45 Plt Count 414 K/mm3 (140-440) 07/16/16 06:45 Lymph % (Auto) 26.7 % (13.4-35.0) 07/16/16 06:45 [place] % (Auto) 5.6 % (0.0-7.3) 07/16/16 06:45 Eos % (Auto) 0.6 % (0.0-4.3) 07/16/16 06:45 Baso % (Auto) 0.7 % (0.0-1.8) 07/16/16 06:45 Lymph # 2.4 K/mm3 (1.2-5.4) 07/16/16 06:45 [place] # 0.5 K/mm3 (0.0-0.8) 07/16/16 06:45 Eos # 0.1 K/mm3 (0.0-0.4) 07/16/16 06:45 Baso # 0.1 K/mm3 (0.0-0.1) 07/16/16 06:45 Seg Neutrophils % 66.4 % (40.0-70.0) 07/16/16 06:45 Seg Neutrophils # 6.0 K/mm3 (1.8-7.7) 07/16/16 06:45 Sodium 137 mmol/L (137-145) 07/16/16 06:45 Potassium 4.3 mmol/L (3.6-5.0) 07/16/16 06:45 Chloride 102.5 mmol/L (98-107) 07/16/16 06:45 Carbon Dioxide 20 mmol/L (22-30) L 07/16/16 06:45 Anion Gap 19 mmol/L 07/16/16 06:45 BUN 12 mg/dL (9-20) 07/16/16 06:45 Creatinine 0.4 mg/dL (0.8-1.5) L 07/16/16 06:45 Estimated GFR > 60 ml/min 07/16/16 06:45 BUN/Creatinine Ratio 30.00 % 07/16/16 06:45 Glucose 68 mg/dL (75-100) L 07/16/16 06:45 POC Glucose 122 (70-105) H 07/17/16 11:29 Lactic Acid 1.7 mmol/L (0.7-2.0) 07/15/16 19:46 Calcium 8.9 mg/dL (8.4-10.2) 07/16/16 06:45 Magnesium 2.2 mg/dL (1.7-2.3) 07/15/16 05:58 Total Bilirubin 0.4 mg/dL (0.1-1.2) 07/15/16 05:58 AST 21 units/L (5-40) 07/15/16 05:58 ALT < 5 units/L (7-56) L 07/15/16 05:58 Alkaline Phosphatase 75 units/L (35-129) 07/15/16 05:58 Total Protein 9.2 g/dL (6.3-8.2) H 07/15/16 05:58 Albumin 3.3 g/dL (3.9-5) L 07/15/16 05:58 Albumin/Globulin Ratio 0.6 % 07/15/16 05:58 TSH 1.870 mlU/mL (0.270-4.200) 07/15/16 05:58 Urine Color [place] (Yellow) 07/15/16 07:11 Urine Turbidity Turbid (Clear) 07/15/16 07:11 Urine pH 5.0 (5.0-7.0) 07/15/16 07:11 Ur Specific [place] 1.013 (1.003-1.030) 07/15/16 07:11 Urine Protein 30 mg/dl mg/dL (Negative) 07/15/16 07:11 Urine Glucose (UA) Neg mg/dL (Negative) 07/15/16 07:11 Urine Ketones Neg mg/dL (Negative) 07/15/16 07:11 Urine Blood Mod (Negative) 07/15/16 07:11 Urine Nitrite Neg (Negative) 07/15/16 07:11 Urine Bilirubin Neg (Negative) 07/15/16 07:11 Urine Urobilinogen < 2.0 mg/dL (<2.0) 07/15/16 07:11 Ur Leukocyte Esterase Lg (Negative) 07/15/16 07:11 Urine WBC (Auto) > 182.0 /HPF (0.0-6.0) H 07/15/16 07:11 Urine RBC (Auto) 44.0 /HPF (0.0-6.0) 07/15/16 07:11 Urine Bacteria (Auto) 3+ /HPF (Negative) 07/15/16 07:11 Urine WBC Clumps 1+ /HPF 07/15/16 07:11 Hyaline Casts 13 /LPF 07/15/16 07:11 Urine Mucus Few /HPF 07/15/16 07:11 Salicylates < 0.3 mg/dL (2.8-20.0) L 07/15/16 05:58 Urine Opiates Screen Presumptive negative 07/15/16 07:11 Urine Methadone Screen Presumptive negative 07/15/16 07:11 Acetaminophen < 15.0 ug/mL (10.0-30.0) 07/15/16 05:58 Ur Barbiturates Screen Presumptive negative 07/15/16 07:11 Ur Phencyclidine Scrn Presumptive negative 07/15/16 07:11 Ur Amphetamines Screen Presumptive negative 07/15/16 07:11 U Benzodiazepines Scrn Presumptive negative 07/15/16 07:11 Urine Cocaine Screen Presumptive negative 07/15/16 07:11 U Marijuana (THC) Screen Presumptive negative 07/15/16 07:11 Drugs of Abuse Note Disclamer 07/15/16 07:11 Plasma/Serum Alcohol < 0.01 gm% (0-0.07) 07/15/16 05:58
== END 2016-07-17 18:00 | DRG 689 ==
LOC: ED 05:14 → 3A 08:46
PROVIDERS: ADMIT Internal Medicine; ATTEND Internal Medicine
DX: N30.00 Acute cystitis without hematuria (principal); G92 Toxic encephalopathy; E46 Unspecified protein-calorie malnutrition; I10 Essential (primary) hypertension; F03.90 Unspecified dementia, unspecified severity, without behavioral disturbance, psychotic disturbance, mood disturbance, and anxiety; E78.5 Hyperlipidemia, unspecified; E11.649 Type 2 diabetes mellitus with hypoglycemia without coma; R62.7 Adult failure to thrive; D63.8 Anemia in other chronic diseases classified elsewhere; L89.150 Pressure ulcer of sacral region, unstageable; L89.300 Pressure ulcer of unspecified buttock, unstageable; L89.890 Pressure ulcer of other site, unstageable; Z74.01 Bed confinement status; Z79.4 Long term (current) use of insulin
CPT/HCPCS: 36415; 80048; 80053; 80307; 80320; 81001; 82140; 82962; 83735; 84443; 85025; 87040; 87086; 93005; 93010; 96365; A9270-GY; G0480; G8996-GN; G8997-GN; J0696; J1644; J7030